=== PATIENT | male | born 1980 | race Caucasian/White ===

== ENCOUNTER 2016-11-28 11:58 | Emergency (ER) | payer BC, MEDICAID ==
[2016-11-28 12:02] VITALS: BP 131/84; PULSE 63; RESP 17; TEMP 97.6
[2016-11-28] MEDS ORDERED: ORPHENADRINE 30 MG/ML 2 ML VIAL IM STA (12:09)
[2016-11-28] MEDS ORDERED: KETOROLAC 60 MG/2 ML VIAL IM STA (12:09)
--- NOTE | 2016-11-28 12:16 | ED ---
Lower Extremity Injury HPI - General Chief Complaint: Extremity Injury, Lower Stated Complaint: Back/Leg Pain Time Seen by Provider: 11/28/16 12:02 Source: patient, RN notes reviewed, old records reviewed Mode of arrival: ambulatory Limitations: no limitations - History of Present Illness Initial Comments: 36-year-old male presents to the ED chief complaint of left-sided lumbar back pain, and left knee pain for the past week. He reports he works at [employer] plan he will resume his feet. He reports that he has no numbness or tingling that goes down the leg. He does have a history of ACL repair in February of last year, by Dr. judy Matias. He does have an appointment on December 13 for a follow-up with Dr. Mikaela Matias for nurses to pain. Patient reports he is not able stand it anymore and was told to come the emergency Department for pain medication. . He denies any saddle anesthesias associated with his back pain. He reports that she's never had any x-rays or images on his lumbar spine. He does not have any known injury for that back pain but he probably did lift something heavy at work to cause this. Patient denies any fever, chills, chest pain, shortness of breath, nausea or vomiting, abdominal pain, dysuria or hematuria or changes in bowel movements. - Related Data Home Medications Medication Instructions Recorded Confirmed HYDROcodone/APAP 7.5-325MG [[place] 1 tab PO DIRECTED PRN 03/18/16 03/21/16 7.5-325] Previous Rx's Medication Instructions Recorded HYDROcodone/APAP 7.5-325MG [[place] 1 each PO Q6HR PRN #40 tab 03/21/16 7.5] Cyclobenzaprine [Flexeril] 10 mg PO TID #15 tab 11/28/16 HYDROcodone/APAP 5-325MG [[place] 1 - 2 tab PO Q6HR PRN #15 tab 11/28/16 5-325] Allergies Allergy/AdvReac Type Severity Reaction Status Date / Time Penicillins Allergy Unknown Verified 03/18/16 10:52 Childhood Review of Systems ROS Statement: Those systems with pertinent positive or pertinent negative responses have been documented in the HPI. ROS Other: All systems not noted in ROS Statement are negative. Past Medical History Additional Past Medical History / Comment(s): USING WALKER History of Any Multi-Drug Resistant Organisms: None Reported Past Surgical History: Orthopedic Surgery Additional Past Surgical History / Comment(s): RT KNEE MENISCUS SX Past Anesthesia/Blood Transfusion Reactions: No Reported Reaction Past Psychological History: Anxiety, Depression Smoking Status: Never smoker - Past Family History Mother Family Medical History: Cancer Additional Family Medical History / Comment(s): BREAST General Exam - General Exam Comments Initial Comments: 36 showed male. No acute distress. Limitations: no limitations General appearance: alert, in no apparent distress Head exam: Present: atraumatic, normocephalic, normal inspection Eye exam: Present: normal appearance, PERRL, EOMI. Absent: scleral icterus, conjunctival injection, periorbital swelling ENT exam: Present: normal exam, mucous membranes moist Neck exam: Present: normal inspection. Absent: tenderness, meningismus, lymphadenopathy Respiratory exam: Present: normal lung sounds bilaterally. Absent: respiratory distress, wheezes, rales, rhonchi, stridor Cardiovascular Exam: Present: regular rate, normal rhythm, normal heart sounds. Absent: systolic murmur, diastolic murmur, rubs, gallop, clicks GI/Abdominal exam: Present: soft, normal bowel sounds. Absent: distended, tenderness, guarding, rebound, rigid Extremities exam: Present: normal inspection, full ROM, normal capillary refill. Absent: tenderness, pedal edema, joint swelling, calf tenderness Left Upper Leg exam: Present: normal inspection, full ROM Knee exam: Present: normal inspection, full ROM, swelling. Absent: tenderness, abrasion Lower Leg exam: Present: normal inspection, full ROM Ankle exam: Present: normal inspection, full ROM Gait: observed and normal Back exam: Present: normal inspection, full ROM, tenderness (lumbar) Neurological exam: Present: alert, oriented X3, CN II-XII intact Psychiatric exam: Present: normal affect, normal mood Skin exam: Present: warm, dry, intact, normal color. Absent: rash Course Vital Signs 11/28/16 12:00 Temperature 97.6 F Pulse Rate 63 Respiratory 17 Rate Blood Pressure 131/84 O2 Sat by Pulse 97 Oximetry Medical Decision Making - Medical Decision Making 36-year-old male presents to the ED chief complaint of left-sided lumbar back pain, and left knee pain for the past week. He reports he works at [employer] plan he will resume his feet. He reports that he has no numbness or tingling that goes down the leg. He does have a history of ACL repair in February of last year, by Dr. judy Matias. He does have an appointment on December 13 for a follow-up with Dr. Mikaela Matias for nurses to pain. Patient reports he is not able stand it anymore and was told to come the emergency Department for pain medication. . Patient received lumbar spine x-rays and left knee x-rays. X- rays were reviewed and showed no significant acute process. Patient will be discharged at this time with prescription for pain medication and muscle relaxers. Discussed close follow-up with his orthopedic physician. Patient agrees to treatment plan will comply. Return parameters were discussed. - Radiology Data Radiology results: report reviewed The spinal curvature could be positional. Disc spaces are maintained. Mild spinal curvature convex left centered L3. Left knee shows postoperative changes. Osteoarthritis and additional findings noted that the thickening of the tubercle tuberosity suspected. Systolic associated sclerosis. Disposition Clinical Impression: Left knee pain, Lumbar back pain Disposition: HOME SELF-CARE Condition: Good Instructions: Knee Pain (ED), Low Back Strain (ED) Additional Instructions: Patient is to rest, ice, elevate left knee. Patient should also do warm heating packs to her lower back. Take the medications as prescribed. Recommend follow-up with Dr. Nunez, and recommended using her knee immobilizer the previously have. Return to the emergency department if any alarming signs or symptoms occur including loss of bowel or bladder control. Prescriptions: Cyclobenzaprine [Flexeril] 10 mg PO TID #15 tab HYDROcodone/APAP 5-325MG [[place] 5-325] 1 - 2 tab PO Q6HR PRN #15 tab PRN Reason: Pain Referrals: Kya Miller MD [STAFF PHYSICIAN] - 1-2 days Clarence Nunez DO [Doctor of Osteopathic Medicine] - 1-2 days Time of Disposition: 12:56
--- NOTE | 2016-11-28 12:53 | XR ---
Left knee HISTORY: Left knee pain 3 views of the left knee Comparison to left knee MRI dated 03/01/2016 Patient is postop for anterior cruciate ligament repair. Mild osteoarthritic changes are present. Ali gnment and bone mineralization are maintained. Thickening of the tibial tuberosity is suspected. Ther e is associated sclerosis. Suspect there is soft tissue swelling. No sizable joint effusion. IMPRESSION: Postop changes, osteoarthritis and additional findings above.
--- NOTE | 2016-11-28 12:54 | XR ---
Lumbar spine HISTORY: Low back pain 3 views of the lumbar spine, no comparisons Lumbar vertebral bodies show preserved height, alignment, and bone mineralization. Disc spaces are ma intained. There is mild spinal curvature convex left centered at L3. No paraspinal mass. IMPRESSION: The spinal curvature could be positional.
== END 2016-11-28 13:17 | disposition home or self-care (01) ==
LOC: EC 11:58
DX: M54.5 Low back pain (principal); M25.562 Pain in left knee; Z88.0 Allergy status to penicillin
CPT/HCPCS: 72100; 73562; 99284; 96372 ×2; J2360; J1885

== ENCOUNTER → 2019-03-26 | Outpatient (CLI) | payer MEDICAID ==
--- NOTE | 2019-03-26 15:33 | US ---
EXAMINATION TYPE: US kidneys/renal and bladder DATE OF EXAM: 03/26/2019 COMPARISON: NONE CLINICAL HISTORY: R80.9 Albuminuria. abn labs, no symptoms, microscopic hematuria EXAM MEASUREMENTS: Right Kidney: 12.9 x 5.3 x 5.5 cm Left Kidney: 13.0 x 5.4 x 5.8 cm Right Kidney: No hydronephrosis or masses seen Left Kidney: No hydronephrosis or masses seen Bladder: not fully distended hence appearance of thickened wall Bilateral Jets seen: yes There is no evidence for hydronephrosis at this point in time. No nephrolithiasis is seen. No karma s are identified. The urinary bladder is anechoic. Bilateral ureteral jets are seen. IMPRESSION: 1. No hydronephrosis or nephrolithiasis. 2. Diffusely thickened urinary bladder wall likely relates to incomplete distention.
== END | disposition home or self-care (01) ==
LOC: RADUSWWP 14:37
PROVIDERS: ATTEND Internal Medicine
DX: R80.9 Proteinuria, unspecified (principal)
CPT/HCPCS: 76770

== ENCOUNTER → 2019-10-29 | Outpatient (CLI) | payer MEDICAID ==
--- NOTE | 2019-10-30 22:22 | MR ---
EXAMINATION TYPE: MR knee LT wo con DATE OF EXAM: 10/29/2019 COMPARISON: MRI left knee March 01, 2016. Outside left knee x-ray October 11, 2019. HISTORY: Pain in left knee per order pain with swelling and history of prior surgery per patient. TECHNIQUE: Multiplanar, multisequence images of the knee is performed without IV contrast. FINDINGS: MEDIAL MENISCUS: Anterior horn is intact without tear. New Fissuring and increased signal along posterior and inferior margin posterior horn sagittal image 26 f or reference could reflect product of interval surgery, new tearing cannot be excluded. Correlate cli nically. LATERAL MENISCUS: Anterior and posterior horns are intact without tear. CRUCIATE LIGAMENTS: The posterior cruciate ligament remains intact and unremarkable. Interval artifac t from ACL repair surgery with repaired tendon felt intact. COLLATERAL LIGAMENTS: The medial collateral ligament and lateral collateral ligament complex are inta ct and unremarkable. EXTENSOR MECHANISM: Visualized quadriceps and patellar tendons are intact. EFFUSION: No significant suprapatellar joint effusion on current study.. POPLITEAL CYST: No popliteal/enriquez cyst. TRICOMPARTMENT SPACES: Moderate patellofemoral compartment joint space loss and spurring significantl y progressed from 2016 MRI. Mild to moderate medial lateral tibiofemoral compartment spurring new fro m prior MRI CARTILAGE: Tricompartment articular cartilage fairly well maintained. BONE MARROW SIGNAL: No focal abnormal marrow signal is appreciated. OTHER: No additional significant abnormality is appreciated. IMPRESSION: 1. New mild to moderate tricompartment degenerative changes since 2016 MRI. 2. Interval ACL surgical repair. No recurrent tear identified. Suspect new tearing versus postsurgica l change posterior horn of medial meniscus. Correlate clinically.
== END | disposition home or self-care (01) ==
LOC: RADMRIMAIN 18:59
PROVIDERS: ATTEND Orthopaedic Surgery
DX: M17.12 Unilateral primary osteoarthritis, left knee (principal)

== ENCOUNTER 2019-11-21 09:36 | Day surgery (SDC) | payer MEDICAID ==
[2019-11-19 11:20] VITALS: BMI 37.0
--- NOTE | 2019-11-20 14:51 | HP ---
HISTORY AND PHYSICAL DATE OF SURGERY: 11/21/2019. William White is a 39-year-old patient seen with progressive left knee pain. We discussed options. He elected to proceed with arthroscopy. Consent was obtained. PAST MEDICAL HISTORY: Hypertension. PAST SURGICAL HISTORY: Left knee ACL reconstruction. DAILY MEDICATIONS: None reported. ALLERGIES: PENICILLIN. SOCIAL HISTORY: Denies tobacco use. PHYSICAL EVALUATION OF THE LEFT KNEE: Range of motion is -2 to 110. Mild effusion. Tenderness along the medial lateral joint lines. Positive medial Merary's. Positive lateral Merary's. Ligaments stable. Hip rotation without pain. Distal neurovascular exam is intact. LEFT KNEE RADIOGRAPHS: Reveal mild osteoarthritic changes. An MRI left knee revealed medial meniscal tear, osteoarthritis and an intact anterior cruciate ligament graft. IMPRESSION: Internal derangement, left knee with medial meniscal tear. PLAN: Left knee arthroscopy with partial meniscectomy, partial synovectomy and debridement. MMODL / IJN: [id number] /
[~2019-11-21 09:36] MED LIST: DEXAMETHASONE SOD PHOSPHATE 10 MG/ML 1 ML VIAL IV ONE; HYDROmorphone 0.5 MG/0.5 ML SYRINGE IVP PRN; LACTATED RINGERS 1,000 ML IV SCH; ONDANSETRON 4 MG/2 ML VIAL IVP ONE; ceFAZolin 3 GM in SODIUM CHLORIDE 0.9% 100 ML IVPB ONE
[2019-11-21] MEDS ORDERED: ONDANSETRON 4 MG/2 ML VIAL ONE (10:20)
[2019-11-21] MEDS ORDERED: LIDOCAINE 1% (10MG/ML) FOR IV START INTRADERMA ONE (10:20)
[2019-11-21] MEDS ORDERED: PROPOFOL 10 MG/ML 20 ML VIAL IV ONE (11:09)
[2019-11-21] MEDS ORDERED: HYDROmorphone (PF) 1 MG/ML ONE (11:09)
[2019-11-21] MEDS ORDERED: MIDAZOLAM 2 MG/2 ML VIAL ONE (11:09)
[2019-11-21] MEDS ORDERED: fentaNYL (PF) 50 MCG/ML 2 ML AMP ONE (11:09)
[2019-11-21] MEDS ORDERED: LIDOCAINE 1% INJ 10MG/ML (20 ML MDV) ONE (11:09)
[2019-11-21] MEDS ORDERED: BUPIVACAINE (PF) 0.25% 30 ML VIAL SQ ONE (11:36)
[2019-11-21 12:11] VITALS: TEMP 97
[2019-11-21] MEDS: MEPERIDINE 50 MG/ML SYRINGE IVP ONE ×2 (12:15→12:30)
--- NOTE | 2019-11-21 12:19 | P.OP ---
Date of Procedure: 11/21/19 Preoperative Diagnosis: Internal derangement left knee Postoperative Diagnosis: 1. Tear medial meniscus left knee 2. 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 Reactive synovitis medial, lateral and suprapatellar compartments left knee Procedure(s) Performed: 1. Arthroscopic partial medial meniscectomy left knee 2. Arthroscopic chondroplasty patellofemoral joint left knee 3. Arthroscopic microfracture femoral sulcus left knee 4. Arthroscopic partial synovectomy medial, lateral and suprapatellar compartments left knee Anesthesia: NARCISOA, local Surgeon: Clarence Nunez Estimated Blood Loss (ml): 7 Pathology: none sent Condition: stable Disposition: PACU Indications for Procedure: 39-year-old patient seen with progressive left knee pain. After treatment options were discussed, he elected to proceed with arthroscopy. Operative Findings: See description of procedure Description of Procedure: Patient was taken to the operative suite. Patient underwent a general anesthetic by the department of anesthesia. Patient was given preoperative antibiotics. The left lower extremity was placed in a well-padded arthroscopic leg collier. The left leg was prepped and draped in the normal sterile orth opedic fashion. A lateral parapatellar and suprapatellar incision was made. Trochars were inserted. Arthroscopy was initiated. Suprapatellar pouch revealed diffuse thick reactive synovitis. The patellofemoral joint appeared to articulate congruently. There are grade 4 chondromalacia of the patella with areas of exposed bone and peripheral osteochondral flap tears. There were grade 3/4, changes of the femoral sulcus with fairly large osteochondral flap tears present. The scope was guided into the medial gutter. No loose bodies or plica were identified. The scope was then guided into the medial compartment. A medial parapatellar incision was made. Trocar inserted followed by probe. There was a radial tear involving the anterior horn medial meniscus. There were grade 2, she changes of the femoral condyle with no osteochondral flap tears present. There was thick reactive synovitis anteriorly. I performed a partial medial meniscectomy. I performed a partial synovectomy decompressing thick reactive synovitis. There was good decompression of synovitis. The residual meniscus was stable. Scope and probe were then guided into the intercondylar notch. Cruciates were identified, probed and found to be stable. The scope and probe were then guided into lateral compartment. Lateral meniscus was probed and found to be stable. There were mild grade 1 chondromalacia changes. There was thick reactive synovitis anteriorly. I introduced a motorized shaver and performed a partial synovectomy. There was good decompression of the synovitis. The scope was in guided back into the suprapatellar compartment. I introduced a motorized shaver into the suprapatellar compartment. I performed a chondroplasty of the patella and of the femoral sulcus getting down to stable os teochondral tissue. I now performed a partial synovectomy decompressing reactive synovitis. I now introduced a microfracture awl and performed a microfracture femoral sulcus penetrating the bone with resultant bleeding at the microfracture site. Again probed the area and the peripheral osteochondral surface remains stable. I now took more look on the entire knee, there was no residual debris present. Instruments were now removed from the joint. The joint was infiltrated with .25% Marcaine. Steri-Strips were applied to the portal sites. Sterile dressings were applied. The patient was placed into a MANJEET hose. No tourniquet was utilized. The patient was awakened, transferred to a bed and taken to recovery stable satisfactory condition.
[2019-11-21] MEDS ORDERED: ONDANSETRON 4 MG/2 ML VIAL IVP ONE (12:23)
[2019-11-21] MEDS ORDERED: HYDROcodone/APAP 7.5-325MG 1 EACH TAB ONE (13:09)
[2019-11-21] MEDS ORDERED: HYDROcodone/APAP 7.5-325MG 1 EACH TAB PO ONE (13:11)
[2019-11-21 14:16] VITALS: BP 125/80; PULSE 63; RESP 20
== END 2019-11-21 14:34 | disposition home or self-care (01) ==
LOC: OR 09:36
PROVIDERS: ATTEND Orthopaedic Surgery
DX: S83.242A Other tear of medial meniscus, current injury, left knee, initial encounter (principal); M94.262 Chondromalacia, left knee; M65.9 Synovitis and tenosynovitis, unspecified; I10 Essential (primary) hypertension; X58.XXXA Exposure to other specified factors, initial encounter; Z88.0 Allergy status to penicillin
CPT/HCPCS: 29881; 29879; J2250; J1100; J2175; J0690; J2405; J2001; J3010; J1170; J2704

== ENCOUNTER 2020-03-07 09:29 | Emergency (ER) | payer MEDICAID ==
[2020-03-07 09:37] VITALS: BP 137/96; PULSE 87; RESP 18; TEMP 97.8
--- NOTE | 2020-03-07 09:51 | ED ---
General Adult HPI - General Chief complaint: ENT Stated complaint: sore throat/congestion Time Seen by Provider: 03/07/20 09:35 Source: patient, RN notes reviewed, old records reviewed Mode of arrival: ambulatory Limitations: no limitations - History of Present Illness Initial comments: This is a 39-year-old male who presents emergency Department with a 2 day history of a sore throat. Patient states she's also been feeling under the weather. Patient denies any fever chills per patient denies a cough or shortness of breath. Patient denies any chest pain or palpitations. Patient denies any abdominal pain. Patient denies any diarrhea. Patient denies headache patient denies numbness weakness. Patient states he just has a sore throat has been feeling fatigued. Patient is requesting a COVID test. Patient denies any exposure to COVID. - Related Data Home Medications Medication Instructions Recorded Confirmed No Known Home Medications 03/07/20 03/07/20 Allergies Allergy/AdvReac Type Severity Reaction Status Date / Time Penicillins Allergy Unknown Verified 03/07/20 10:24 Childhood Review of Systems ROS Statement: Those systems with pertinent positive or pertinent negative responses have been documented in the HPI. ROS Other: All systems not noted in ROS Statement are negative. Past Medical History Additional Past Medical History / Comment(s): USING WALKER History of Any Multi-Drug Resistant Organisms: None Reported Past Surgical History: Orthopedic Surgery Additional Past Surgical History / Comment(s): RT KNEE MENISCUS SX Past Anesthesia/Blood Transfusion Reactions: No Reported Reaction Past Psychological History: Anxiety, Depression Smoking Status: Never smoker Past Alcohol Use History: Occasional Past Drug Use History: Marijuana - Past Family History Mother Family Medical History: Cancer Additional Family Medical History / Comment(s): BREAST General Exam - General Exam Comments Initial Comments: GENERAL: Patient is well-developed and well-nourished. Patient is nontoxic and well-hy drated and is in mild distress. ENT: Neck is soft and supple. No significant lymphadenopathy is noted. Oropharynx is erythematous. Moist mucous membranes. Neck has full range of motion without eliciting any pain. EYES: The sclera were anicteric and conjunctiva were pink and moist. Extraocular movements were intact and pupils were equal round and reactive to light. Eyelids were unremarkable. PULMONARY: Unlabored respirations. Good breath sounds bilaterally. No audible rales rhonchi or wheezing was noted. CARDIOVASCULAR: There is a regular rate and rhythm without any murmurs gallops or rubs. ABDOMEN: Soft and nontender with normal bowel sounds. SKIN: Skin is clear with no lesions or rashes and otherwise unremarkable. NEUROLOGIC: Patient is alert and oriented x3. Cranial nerves II through XII are grossly intact. Motor and sensory are also intact. Normal speech, volume and content. Symmetrical smile. MUSCULOSKELETAL: Normal extremities with adequate strength and full range of motion. LYMPHATICS: No significant lymphadenopathy is noted PSYCHIATRIC: Normal psychiatric evaluation. Limitations: no limitations Course Vital Signs 03/07/20 09:34 Temperature 97.8 F Pulse Rate 87 Respiratory 18 Rate Blood Pressure 137/96 O2 Sat by Pulse 100 Oximetry Medical Decision Making - Lab Data Lab Results 03/07/20 Range/Units 09:53 Group A Strep Rapid Negative (Negative) Disposition Clinical Impression: Viral pharyngitis Disposition: HOME SELF-CARE Condition: Good Instructions (If sedation given, give patient instructions): Pharyngitis (ED) Is patient prescribed a controlled substance at d/c from ED?: No Referrals: Vinicio Lamb MD [Primary Care Provider] - 1-2 days Time of Disposition: 10:50
== END 2020-03-07 10:51 | disposition home or self-care (01) ==
LOC: EC 09:29
DX: J02.9 Acute pharyngitis, unspecified (principal); Z20.828 Contact with and (suspected) exposure to other viral communicable diseases; Z88.0 Allergy status to penicillin
CPT/HCPCS: 87081; 87430; 99283; U0003

== ENCOUNTER 2020-07-26 06:12 | Emergency (ER) | payer MEDICAID ==
[2020-07-26 06:17] VITALS: TEMP 98.1
--- NOTE | 2020-07-26 06:36 | ED ---
General Adult HPI - General Chief complaint: Upper Respiratory Infection Stated complaint: Chest Pain Time Seen by Provider: 07/26/20 06:25 Source: patient, RN notes reviewed Mode of arrival: wheelchair Limitations: no limitations - History of Present Illness Initial comments: This a 39-year-old male presents emergency Department chief complaint of right- sided chest discomfort, body aches, cough congestion. Patient states that started around 10 PM last night states it's just has not felt well over the last few days he's had also exposures to covid. Patient states she was tested once was negative. Patient states he started having discomfort radiates down his right arm and became concerned. Patient states pain is actually resolving now. Patient did take 2 full dose aspirin prior arrival. Patient has no prior past medical history is not taking current medications. Patient has no nausea vomiting does complain of severe body aches, nasal congestion and slight cough. - Related Data Home Medications Medication Instructions Recorded Confirmed No Known Home Medications 03/07/20 03/07/20 Allergies Allergy/AdvReac Type Severity Reaction Status Date / Time Penicillins Allergy Unknown Verified 07/26/20 06:17 Childhood Review of Systems ROS Statement: Those systems with pertinent positive or pertinent negative responses have been documented in the HPI. ROS Other: All systems not noted in ROS Statement are negative. Past Medical History Past Medical History: No Reported History Additional Past Medical History / Comment(s): USING WALKER History of Any Multi-Drug Resistant Organisms: None Reported Past Surgical History: Orthopedic Surgery Additional Past Surgical History / Comment(s): RT KNEE MENISCUS SX Past Anesthesia/Blood Transfusion Reactions: No Reported Reaction Past Psychological History: Anxiety, Depression Smoking Status: Never smoker Past Alcohol Use History: Occasional Past Drug Use History: Marijuana - Past Family History Mother Family Medical History: Cancer Additional Family Medical History / Comment(s): BREAST General Exam General appearance: alert, in no apparent distress Head exam: Present: atraumatic, normocephalic, normal inspection Eye exam: Present: normal appearance, PERRL, EOMI. Absent: scleral icterus, conjunctival injection, periorbital swelling ENT exam: Present: normal exam, normal oropharynx, mucous membranes moist, TM's normal bilaterally Neck exam: Present: normal inspection, full ROM. Absent: tenderness, meningismus, lymphadenopathy Respiratory exam: Present: normal lung sounds bilaterally. Absent: respiratory distress, wheezes, rales, rhonchi, stridor Cardiovascular Exam: Present: regular rate, normal rhythm, normal heart sounds. Absent: systolic murmur, diastolic murmur, rubs, gallop, clicks GI/Abdominal exam: Present: soft, normal bowel sounds. Absent: distended, te nderness, guarding, rebound, rigid Back exam: Absent: CVA tenderness (R), CVA tenderness (L) Neurological exam: Present: alert, oriented X3 Skin exam: Present: warm, dry, intact, normal color. Absent: rash Course Vital Signs 07/26/20 06:13 Temperature 98.1 F Pulse Rate 80 Respiratory 19 Rate Blood Pressure 145/90 O2 Sat by Pulse 98 Oximetry EKG Findings - EKG Comments: EKG Findings:: EKG performed at 6:25 normal sinus rhythm with a left anterior physical block rate of 72 ME 188 QRS 100 QT/QTC 372/407 Medical Decision Making - Medical Decision Making X-ray labs and EKG reviewed. Patient has a d-dimer negative troponin patient's pain is related to his positive coronavirus test. Patient discharged in stable condition return parameters were discussed. - Lab Data Result diagrams: 07/26/20 06:48 07/26/20 06:48 Lab Results 07/26/20 07/26/20 07/26/20 Range/Units 06:48 06:48 06:48 WBC 7.8 (3.8-10.6) k/uL RBC 4.89 (4.30-5.90) m/uL Hgb 15.0 (13.0-17.5) gm/dL Hct 42.4 (39.0-53.0) % MCV 86.7 (80.0-100.0) fL MCH 30.6 (25.0-35.0) pg MCHC 35.3 (31.0-37.0) g/dL RDW 12.1 (11.5-15.5) % Plt Count 242 (150-450) k/uL MPV 7.2 Neutrophils % 64 % Lymphocytes % 25 % Monocytes % 8 % Eosinophils % 1 % Basophils % 1 % Neutrophils # 5.0 (1.3-7.7) k/uL Lymphocytes # 1.9 (1.0-4.8) k/uL Monocytes # 0.6 (0-1.0) k/uL Eosinophils # 0.1 (0-0.7) k/uL Basophils # 0.1 (0-0.2) k/uL PT 9.9 (9.0-12.0) sec INR 0.9 (<1.2) APTT 23.2 (22.0-30.0) sec D-Dimer <0.17 (<0.60) mg/L FEU Sodium 140 (137-145) mmol/L Potassium 4.1 (3.5-5.1) mmol/L Chloride 108 H (98-107) mmol/L Carbon Dioxide 20 L (22-30) mmol/L Anion Gap 12 mmol/L BUN 15 (9-20) mg/dL Creatinine 0.67 (0.66-1.25) mg/dL Est GFR (CKD-EPI)AfAm >90 (>60 ml/min/1.73 sqM) Est GFR (CKD-EPI)NonAf >90 (>60 ml/min/1.73 sqM) Glucose 100 H (74-99) mg/dL Calcium 9.2 (8.4-10.2) mg/dL Magnesium 1.7 (1.6-2.3) mg/dL Total Bilirubin 0.4 (0.2-1.3) mg/dL AST 23 (17-59) U/L ALT 26 (4-49) U/L Alkaline Phosphatase 58 (38-126) U/L Troponin I (0.000-0.034) ng/mL Total Protein 7.2 (6.3-8.2) g/dL Albumin 4.4 (3.5-5.0) g/dL Coronavirus (PCR) (Not Detectd) 07/26/20 07/26/20 Range/Units 06:48 06:48 WBC (3.8-10.6) k/uL RBC (4.30-5.90) m/uL Hgb (13.0-17.5) gm/dL Hct (39.0-53.0) % MCV (80.0-100.0) fL MCH (25.0-35.0) pg MCHC (31.0-37.0) g/dL RDW (11.5-15.5) % Plt Count (150-450) k/uL MPV Neutrophils % % Lymphocytes % % Monocytes % % Eosinophils % % Basophils % % Neutrophils # (1.3-7.7) k/uL Lymphocytes # (1.0-4.8) k/uL Monocytes # (0-1.0) k/uL Eosinophils # (0-0.7) k/uL Basophils # (0-0.2) k/uL PT (9.0-12.0) sec INR (<1.2) APTT (22.0-30.0) sec D-Dimer (<0.60) mg/L FEU Sodium (137-145) mmol/L Potassium (3.5-5.1) mmol/L Chloride (98-107) mmol/L Carbon Dioxide (22-30) mmol/L Anion Gap mmol/L BUN (9-20) mg/dL Creatinine (0.66-1.25) mg/dL Est GFR (CKD-EPI)AfAm (>60 ml/min/1.73 sqM) Est GFR (CKD-EPI)NonAf (>60 ml/min/1.73 sqM) Glucose (74-99) mg/dL Calcium (8.4-10.2) mg/dL Magnesium (1.6-2.3) mg/dL Total Bilirubin (0.2-1.3) mg/dL AST (17-59) U/L ALT (4-49) U/L Alkaline Phosphatase (38-126) U/L Troponin I <0.012 (0.000-0.034) ng/mL Total Protein (6.3-8.2) g/dL Albumin (3.5-5.0) g/dL Coronavirus (PCR) Detected A (Not Detectd) Disposition Clinical Impression: COVID-19 Disposition: HOME SELF-CARE Condition: Stable Instructions (If sedation given, give patient instructions): Coronavirus Disease 2019 (COVID-19) Additional Instructions: Please return to the Emergency Department if symptoms worsen or any other concerns. Is patient prescribed a controlled substance at d/c from ED?: No Referrals: Vinicio Lamb MD [Primary Care Provider] - 1-2 days Time of Disposition: 08:17
[2020-07-26 07:04] LABS: Basophils # (A) 0.1 k/uL (0-0.2); Basophils % (A) 1 %; Eosinophils # (A) 0.1 k/uL (0-0.7); Eosinophils % (A) 1 %; HCT 42.4 % (39.0-53.0); Lymphocytes # (A) 1.9 k/uL (1.0-4.8); Lymphocytes % (A) 25 %; MCH 30.6 pg (25.0-35.0); MCHC 35.3 g/dL (31.0-37.0); MCV 86.7 fL (80.0-100.0); Mean Platelet Volume 7.2; Monocytes # (A) 0.6 k/uL (0-1.0); Monocytes % (A) 8 %; Neutrophils % (A) 64 %; Platelet Count 242 k/uL (150-450); RBC 4.89 m/uL (4.30-5.90); RDW 12.1 % (11.5-15.5); WBC 7.8 k/uL (3.8-10.6)
[2020-07-26 07:19] LABS: ALT 26 U/L (4-49); AST 23 U/L (17-59); African American GFR (CKD) >90 (>60 ml/min/1.73 sqM); Albumin 4.4 g/dL (3.5-5.0); Alkaline Phosphatase 58 U/L (38-126); Anion Gap 12 mmol/L; Blood Urea Nitrogen 15 mg/dL (9-20); Calcium 9.2 mg/dL (8.4-10.2); Carbon Dioxide 20 mmol/L (22-30); Chloride 108 mmol/L (98-107); Glucose 100 mg/dL (74-99); Magnesium 1.7 mg/dL (1.6-2.3); Non-African American GFR(CKD) >90 (>60 ml/min/1.73 sqM); Potassium 4.1 mmol/L (3.5-5.1); Sodium 140 mmol/L (137-145); Total Bilirubin 0.4 mg/dL (0.2-1.3); Total Protein 7.2 g/dL (6.3-8.2)
[2020-07-26 07:24] LABS: D-Dimer <0.17 mg/L FEU (<0.60); INR 0.9 (<1.2); Partial Thromboplastin Time 23.2 sec (22.0-30.0); Prothrombin Time 9.9 sec (9.0-12.0)
[2020-07-26] MEDS ORDERED: KETOROLAC 15 MG/ML 1 ML VIAL IVP STA (08:15)
--- NOTE | 2020-07-26 08:15 | XR ---
EXAMINATION TYPE: XR chest 2V DATE OF EXAM: 07/26/2020 COMPARISON: 07/21/2017 INDICATION: Chest pain right side cough short of breath TECHNIQUE: Frontal and lateral views of the chest are obtained. FINDINGS: The heart size is normal. The pulmonary vasculature is normal. The lungs are clear. No pneumothorax is evident. No suspicious osseous abnormality. IMPRESSION: 1. No acute pulmonary process.
[2020-07-26 08:36] VITALS: BP 135/90; PULSE 74; RESP 18
== END 2020-07-26 08:49 | disposition home or self-care (01) ==
LOC: EC 06:12
DX: U07.1 COVID-19 (principal); Z88.0 Allergy status to penicillin; F32.9 Major depressive disorder, single episode, unspecified; F41.9 Anxiety disorder, unspecified; F12.90 Cannabis use, unspecified, uncomplicated
CPT/HCPCS: 36415; 93005; 85379; 80053; 83735; 84484; 85025; 85610; 85730; 87635; 71046; 99285; 96374; J1885

== ENCOUNTER → 2022-02-25 | Outpatient (CLI) | payer OTHER ==
--- NOTE | 2022-02-27 08:26 | CT ---
EXAMINATION TYPE: CT abdomen pelvis wo/w con DATE OF EXAM: 02/25/2022 COMPARISON: None. HISTORY: Hematuria CT DLP: 3341 mGycm, Automated Exposure Control for Dose Reduction was Utilized. CONTRAST: CT scan of the abdomen and pelvis is performed with oral and without and with IV Contrast, patient in jected with 70cc mL of Isovue 300. FINDINGS: LUNG BASES: No significant abnormality is appreciated. LIVER/GB: No significant abnormality is appreciated. PANCREAS: No significant abnormality is seen. SPLEEN: No significant abnormality is seen. ADRENALS: No significant abnormality is seen. KIDNEYS: Noncontrast images show no renal calculi bilaterally. Postcontrast images show symmetric cor tical medullary uptake and excretion without hydronephrosis seen bilaterally. No intraluminal mass or calculus in bladder clearly seen. BOWEL: Oral contrast reaches level of proximal transverse colon. No suspicious small or large bowel d ilatation. Contrast-filled appendix is seen. PROSTATE/SEMINAL VESICLES: No gross abnormality seen. LYMPH NODES: No greater than 1cm abdominal or pelvic lymph nodes are appreciated. OSSEOUS STRUCTURES: Mild facet arthropathy lower lumbar levels. OTHER: Tiny fat-containing right inguinal hernia. IMPRESSION: No significant finding is seen to account for patient's clinical symptoms of hematuria. If symptoms persist advise urology referral. No acute findings are evident.
== END | disposition home or self-care (01) ==
LOC: RADCTMAIN 14:33
PROVIDERS: ATTEND Family Medicine
DX: R31.9 Hematuria, unspecified (principal); R82.998 Other abnormal findings in urine; R80.9 Proteinuria, unspecified
CPT/HCPCS: 74178; Q9967 ×2

== ENCOUNTER 2022-03-23 10:40 | Day surgery (SDC) | payer OTHER ==
[2022-03-18 15:50] VITALS: BMI 36.2
--- NOTE | 2022-03-23 09:14 | P.GSHP ---
History of Present Illness H&P Date: 03/23/22 CHIEF COMPLAINT: Colon screen HISTORY OF PRESENT ILLNESS: The patient is a 41-year-old male who presents for colon screen. Lower endoscopy was offered for further evaluation and management. PAST MEDICAL HISTORY: Please see list. PAST SURGICAL HISTORY: Please see list. MEDICATIONS: Please see list. ALLERGIES: Please see list. SOCIAL HISTORY: No illicit drug use FAMILY HISTORY: No reports of Crohn disease or ulcerative colitis. REVIEW OF ORGAN SYSTEMS: CONSTITUTIONAL: No reports of fevers or chills. PHYSICAL EXAM: VITAL SIGNS: Stable GENERAL: Well-developed pleasant in no acute distress. HEENT: No scleral icterus. Extraocular movements grossly intact. Moist buccal mucosa. NECK: Supple without lymphadenopathy. CHEST: Unlabored respirations. Equal bilateral excursions. CARDIOVASCULAR: Regular rate and rhythm. Distal 2+ pulses. ABDOMEN: Soft, nontender, nondistended. MUSCULOSKELETAL: No clubbing, cyanosis, or edema. ASSESSMENT: 1. Colon screen. PLAN: 1. Recommend proceeding with a lower endoscopy Past Medical History Past Medical History: No Reported History Additional Past Medical History / Comment(s): BLOOD IN STOOL History of Any Multi-Drug Resistant Organisms: None Reported Past Surgical History: Orthopedic Surgery Additional Past Surgical History / Comment(s): RT KNEE MENISCUS SX. LT ACL REPAIR Past Anesthesia/Blood Transfusion Reactions: No Reported Reaction Smoking Status: Never smoker - Past Family History Mother Family Medical History: Cancer Additional Family Medical History / Comment(s): BREAST Medications and Allergies Home Medications Medication Instructions Recorded Confirmed Type No Known Home Medications 03/07/20 03/18/22 History Allergies Allergy/AdvReac Type Severity Reaction Status Date / Time Penicillins Allergy Unknown Verified 03/18/22 15:41 Childhood
[~2022-03-23 10:40] MED LIST changes: -DEXAMETHASONE SOD PHOSPHATE 10 MG/ML 1 ML VIAL IV ONE; -HYDROmorphone 0.5 MG/0.5 ML SYRINGE IVP PRN; +LIDOCAINE 1% (10MG/ML) FOR IV START INTRADERMA PRN; -ONDANSETRON 4 MG/2 ML VIAL IVP ONE; -ceFAZolin 3 GM in SODIUM CHLORIDE 0.9% 100 ML IVPB ONE
[2022-03-23 11:01] VITALS: RESP 16; TEMP 97.4
[2022-03-23] MEDS ORDERED: PROPOFOL 10 MG/ML 20 ML VIAL IV ONE (12:05)
[2022-03-23 12:59] VITALS: BP 148/91; PULSE 53
--- NOTE | 2022-03-23 20:50 | P.PCN ---
Date of Procedure: 03/23/22 Description of Procedure: PREOPERATIVE DIAGNOSIS: Abnormal fecal study POSTOPERATIVE DIAGNOSIS: Tubular adenoma rectum Tubular adenoma transverse colon OPERATION: Colonoscopy to the ileocecal valve and appendiceal orifice, cecum Colonoscopy with hot snare polypectomy SURGEON: Sofía Hollis MD. ANESTHESIA: MAC. INDICATIONS: The patient is an 41-year-old male who presents with fecal study, positive fecal occult blood test. Benefits and risks were described and informed consent was obtained. DESCRIPTION OF PROCEDURE: The patient had undergone Sutab prep. The patient had been brought into the operating room and laid in the left lateral decubitus position. After adequate intravenous sedation, the rectum was examined with 2% lidocaine jelly. The prostate was unremarkable. No external hemorrhoids were encountered. The rectal tone was within normal limits. No lesions were palpated in the rectal vault. An Olympus colonoscope was advanced until the cecum, ileocecal valve and appendiceal orifice were clearly viewed. The prep was excellent. No sigmoid diverticulosis was encountered. Colonic polyps were found and removed. No evidence of focal colitis was found. Retroflexion of the scope demonstrated grade 1 internal hemorrhoids without active bleeding or inflammation. The colon was desufflated. The patient had tolerated the procedure well. Withdrawal time was over 6 minutes. FINDINGS: Aronchick preparation quality scale 1 (1-5) Internal hemorrhoids, grade 1 No external hemorrhoids No arteriovenous malformations. No sigmoid diverticulosis Removal of 3 polyps: - Snare polypectomy 10 cm from the anal verge, 15 mm tubulovillous adenoma, rectum - Snare polypectomy mid transverse colon 2, 5 to 8 mm flat villous adenoma No focal colitis. RECOMMENDATIONS: Given severity of tubular adenomas, recommend repeat colonoscopy 2 years, 2023 Plan - Discharge Summary Discharge Rx Participant: Yes New Discharge Prescriptions: Continue No Known Home Medications Discharge Medication List No Known Home Medications 03/07/20 [History] Follow up Appointment(s)/Referral(s): Sofía Hollis MD [STAFF PHYSICIAN] - 04/05/22 (Please call the office today to make an appointment time that works for you. Thanks!) Patient Instructions/Handouts: *Surgery [facility] - (Anesthesia) Endoscopy Discharge Instructions, Colorectal Polyps (GEN) Activity/Diet/Wound Care/Special Instructions: Repeat colonoscopy 2 years, 2023 Discharge Disposition: HOME SELF-CARE
== END 2022-03-23 13:07 | disposition home or self-care (01) ==
LOC: ORWHC2ENDO 10:40
PROVIDERS: ATTEND Surgery Plastic and Reconstructive Surgery
DX: R19.5 Other fecal abnormalities (principal); Z12.11 Encounter for screening for malignant neoplasm of colon; D12.3 Benign neoplasm of transverse colon; D12.8 Benign neoplasm of rectum; Z88.0 Allergy status to penicillin
CPT/HCPCS: 88305; 45385; J2704

== ENCOUNTER → 2022-12-19 | Outpatient (CLI) | payer OTHER ==
--- NOTE | 2022-12-19 16:18 | US ---
EXAMINATION TYPE: US kidneys/renal and bladder DATE OF EXAM: 12/19/2022 COMPARISON: Renal ultrasound 03/16/2019, CT abdomen pelvis 02/25/2022 CLINICAL INDICATION: Male, 42 years old with history of R80.9; EXAM MEASUREMENTS: Right Kidney: 13.0 x 4.9 x 6.5 cm Left Kidney: 14.5 x 4.9 x 5.9 cm Right Kidney: upper limits in size, lobular lower pole ?double collecting system Left Kidney: upper limits in size, 1.5cm cyst at the upper pole Bladder: wnl Bilateral Jets seen: no There is no evidence for hydronephrosis at this point in time. No nephrolithiasis is seen. No karma s are identified. Cortical measured differentiation is maintained bilaterally. Simple cysts identifi ed in the upper pole the left kidney measuring up to 1.5 cm. The urinary bladder is anechoic. Bilate ral ureteral jets are not seen. IMPRESSION: No hydronephrosis or nephrolithiasis.
== END | disposition home or self-care (01) ==
LOC: RADUSWWP 15:46
PROVIDERS: ATTEND Internal Medicine Nephrology
DX: R80.9 Proteinuria, unspecified (principal)
CPT/HCPCS: 76770

== ENCOUNTER 2024-11-18 08:12 | Day surgery (SDC) | payer OTHER ==
[~2024-11-18 08:12] MED LIST changes: -LACTATED RINGERS 1,000 ML IV SCH
--- NOTE | 2024-11-18 08:50 | P.GSHP ---
History of Present Illness H&P Date: 11/18/24 CHIEF COMPLAINT: Colon adenoma HISTORY OF PRESENT ILLNESS: The patient is a 44-year-old male who presents with colon adenoma. Lower endoscopy was offered for further evaluation and management. PAST MEDICAL HISTORY: Please see list. PAST SURGICAL HISTORY: Please see list. MEDICATIONS: Please see list. ALLERGIES: Please see list. SOCIAL HISTORY: No illicit drug use FAMILY HISTORY: No reports of Crohn disease or ulcerative colitis. REVIEW OF ORGAN SYSTEMS: CONSTITUTIONAL: No reports of fevers or chills. PHYSICAL EXAM: VITAL SIGNS: Stable GENERAL: Well-developed pleasant in no acute distress. HEENT: No scleral icterus. Extraocular movements grossly intact. Moist buccal mucosa. NECK: Supple without lymphadenopathy. CHEST: Unlabored respirations. Equal bilateral excursions. CARDIOVASCULAR: Regular rate and rhythm. Distal 2+ pulses. ABDOMEN: Soft, nontender, nondistended. MUSCULOSKELETAL: No clubbing, cyanosis, or edema. ASSESSMENT: 1. Colon adenoma. PLAN: 1. Recommend proceeding with a lower endoscopy Past Medical History Past Medical History: No Reported History, Osteoarthritis (OA) Additional Past Medical History / Comment(s): BLOOD IN STOOL History of Any Multi-Drug Resistant Organisms: None Reported Past Surgical History: Orthopedic Surgery Additional Past Surgical History / Comment(s): RT KNEE MENISCUS SX. LT ACL REPAIR Past Anesthesia/Blood Transfusion Reactions: No Reported Reaction Smoking Status: Never smoker - Past Family History Mother Family Medical History: Cancer Additional Family Medical History / Comment(s): BREAST Medications and Allergies Home Medications Medication Instructions Recorded Confirmed Type Hydrocodone/Acetaminophen 1 tab PO Q8H PRN 11/15/24 11/15/24 History [Hydrocodone/Acetaminophen 7.5-325] Allergies Allergy/AdvReac Type Severity Reaction Status Date / Time Penicillins Allergy Unknown Verified 11/15/24 11:30 Childhood
[2024-11-18 09:02] VITALS: RESP 16; TEMP 97
[2024-11-18] MEDS: LACTATED RINGERS 1,000 ML IV SCH (09:07)
[2024-11-18] MEDS: IV FLUID CONTINUATION 1,000 ML IV ONE ×2 (09:07→09:55)
[2024-11-18] MEDS ORDERED: PROPOFOL 10 MG/ML 20 ML VIAL IV ONE (09:56)
[2024-11-18 10:36] VITALS: BP 165/104; PULSE 62
--- NOTE | 2024-11-18 10:39 | P.PCN ---
Date of Procedure: 11/18/24 Description of Procedure: PREOPERATIVE DIAGNOSIS: Colon adenoma Personal history high risk adenoma POSTOPERATIVE DIAGNOSIS: Personal history high risk adenoma Internal/external hemorrhoids, grade 3 OPERATION: Colonoscopy to the cecum, ileocecal valve and appendiceal orifice. SURGEON: Sofía Hollis MD. ANESTHESIA: MAC. INDICATIONS: The patient is a 44-year-old male who presents with high risk colon adenomas. Last colonoscopy 3 years ago demonstrated large adenoma resection. Benefits and risks were described and informed consent was obtained. DESCRIPTION OF PROCEDURE: The patient had undergone Suprep. The patient had been brought into the operating room and laid in the left lateral decubitus position. After adequate intravenous sedation, the rectum was examined with 2% lidocaine jelly. External hemorrhoids were encountered. The rectal tone was within normal limits. No lesions were palpated in the rectal vault. An Olympus colonoscope was advanced until the cecum, ileocecal valve and appendiceal orifice were clearly viewed. The prep was good. No large scattered diverticulosis was encountered. No colonic polyps were found. No evidence of focal colitis was found. Retroflexion of the scope demonstrated grade 3 internal hemorrhoids without active bleeding or inflammation. The colon was desufflated. The patient had tolerated the procedure well. Withdrawal time was over 6 minutes. FINDINGS: Aronchick preparation quality scale 1+ (1-5) Internal hemorrhoids, grade 3 External prolapsed hemorrhoids, grade 3 No arteriovenous malformations. No adenomatous polyps. No focal colitis. No large sigmoid diverticulosis RECOMMENDATIONS: Lower endoscopy in 2029 Plan - Discharge Summary Discharge Rx Participant: No New Discharge Prescriptions: Continue Hydrocodone/Acetaminophen [Hydrocodone/Acetaminophen 7.5-325] 1 tab PO Q8H PRN PRN Reason: Pain Discharge Medication List Hydrocodone/Acetaminophen [Hydrocodone/Acetaminophen 7.5-325] 1 tab PO Q8H PRN 11/15/24 [History] Follow up Appointment(s)/Referral(s): Sofía Hollis MD [STAFF PHYSICIAN] - As Needed Patient Instructions/Handouts: Colonoscopy (DC) Activity/Diet/Wound Care/Special Instructions: Repeat colonoscopy 2029 Discharge Disposition: HOME SELF-CARE
== END 2024-11-18 11:24 | disposition home or self-care (01) ==
LOC: ORWHC2ENDO 08:12
PROVIDERS: ATTEND Surgery Plastic and Reconstructive Surgery
DX: Z12.11 Encounter for screening for malignant neoplasm of colon (principal); K64.2 Third degree hemorrhoids; K64.4 Residual hemorrhoidal skin tags; M19.90 Unspecified osteoarthritis, unspecified site; F32.A Depression, unspecified; F41.9 Anxiety disorder, unspecified; Z86.0101 Personal history of adenomatous and serrated colon polyps; Z88.0 Allergy status to penicillin
CPT/HCPCS: 45378; J2704